=== PATIENT | female | born 1995 | race Caucasian/White ===

== ENCOUNTER 2020-02-13 09:39 | Outpatient (REF) | payer OTHER, SELFPAY ==
[2020-02-13 12:06] LABS: Alanine Aminotransferase 19 U/L (0-31); Anion Gap 14 (12-20); Aspartate Amino Transferase 18 U/L (5-31); Blood Urea Nitrogen 14 mg/dL (9-16); Calcium 8.7 mg/dL (8.4-10.2); Carbon Dioxide 25 mmol/L (22-29); Chloride 104 mmol/L (96-108); Cholesterol 212 mg/dL; Estimated Glomerular Filt Rate > 60; Glucose Fasting 88 mg/dL (60-99); HDL Cholesterol 78 mg/dL; LDL Cholesterol Calculated 113 mg/dl; Potassium 3.9 mmol/l (3.3-5.1); Sodium 139 mmol/L (135-145); Triglycerides 109 mg/dL
== END 2020-02-13 09:40 | disposition home or self-care (01) ==
LOC: HO.HMGCLDS 09:39
PROVIDERS: PCP Internal Medicine; Visit Provider Internal Medicine
DX: Z00.01 Encounter for general adult medical examination with abnormal findings (principal)
CPT/HCPCS: 80048; 80061; 84450; 84460

== ENCOUNTER 2021-08-19 08:21 | Outpatient (REF) | payer OTHER, SELFPAY ==
[2021-08-19 11:10] LABS: MANUAL DIFF FLAG NO
[2021-08-19 11:24] LABS: Basophils Percent Auto 0.6 % (0-2); Eosinophils Absolute Auto 0.2 X10*3/uL (0.0-0.4); Eosinophils Percent Auto 2.7 % (0-4); Hematocrit 38.9 % (37.0-47.0); Hemoglobin 12.6 g/dl (12.0-16.0); Imm Gran Abs Auto 0.02 X10*3/uL (0.00-0.03); Imm Gran Pct Auto 0.3 % (0.0-0.4); Lymphocytes Absolute Auto 2.8 X10*3/uL (1.2-4.9); Lymphocytes Percent Auto 39.2 % (20-40); Mean Corpuscular HGB Conc 32.4 g/dl (31.0-35.0); Mean Corpuscular Hemoglobin 29.1 pg (27.0-33.0); Mean Corpuscular Volume 89.8 fL (80.0-98.0); Mean Platelet Volume 10.3 fL (9.4-12.3); Monocytes Absolute Auto 0.4 X10*3/uL (0.1-1.2); Monocytes Percent Auto 5.6 % (2-11); Neutrophils Absolute Auto 3.6 x10*3/uL (2.0-8.3); Neutrophils Percent Auto 51.6 % (45-73); Platelet Count 381 X10*3/uL (160-400); Red Blood Count 4.33 X10*6/uL (4.20-5.50); Red Cell Distribution Width 12.2 % (11.0-16.0)
[2021-08-19 11:59] LABS: Alanine Aminotransferase 18 U/L (0-31); Anion Gap 13 (12-20); Aspartate Amino Transferase 18 U/L (5-31); Blood Urea Nitrogen 13 mg/dL (9-16); Calcium 9.7 mg/dL (8.4-10.2); Carbon Dioxide 24 mmol/L (22-29); Chloride 107 mmol/L (96-108); Cholesterol 221 mg/dL; Estimated Glomerular Filt Rate > 60; Glucose Fasting 95 mg/dL (60-99); HDL Cholesterol 76 mg/dL; LDL Cholesterol Calculated 126 mg/dl; Potassium 4.6 mmol/L (3.3-5.1); Sodium 139 mmol/L (135-145); Triglycerides 96 mg/dL
[2021-08-19 12:00] LABS: Vitamin D 25-OH Total 28.6 ng/mL (>30)
[2021-08-19 12:48] LABS: TSH reflex Free T4 1.62 uIU/mL (0.32-4.0)
== END 2021-08-19 08:22 | disposition home or self-care (01) ==
LOC: HO.HMGCLDS 08:21
PROVIDERS: PCP Internal Medicine; Visit Provider Internal Medicine
DX: Z00.01 Encounter for general adult medical examination with abnormal findings (principal); F41.9 Anxiety disorder, unspecified; F32.A Depression, unspecified; J30.9 Allergic rhinitis, unspecified
CPT/HCPCS: 36415; 80048; 80061; 82306; 84443; 84450; 84460; 85025

== ENCOUNTER 2022-06-30 10:13 | Outpatient (REF) | payer OTHER, SELFPAY ==
[2022-06-30 12:48] LABS: MANUAL DIFF FLAG NO
[2022-06-30 12:51] LABS: Basophils Percent Auto 0.3 % (0-2); Eosinophils Absolute Auto 0.1 X10*3/uL (0.0-0.4); Eosinophils Percent Auto 1.1 % (0-4); Hematocrit 36.9 % (37.0-47.0); Hemoglobin 12.1 g/dl (12.0-16.0); Imm Gran Abs Auto 0.01 X10*3/uL (0.00-0.03); Imm Gran Pct Auto 0.2 % (0.0-0.4); Lymphocytes Absolute Auto 2.2 X10*3/uL (1.2-4.9); Lymphocytes Percent Auto 35.4 % (20-40); Mean Corpuscular HGB Conc 32.8 g/dl (31.0-35.0); Mean Corpuscular Hemoglobin 29.2 pg (27.0-33.0); Mean Corpuscular Volume 88.9 fL (80.0-98.0); Mean Platelet Volume 10.3 fL (9.4-12.3); Monocytes Absolute Auto 0.2 X10*3/uL (0.1-1.2); Monocytes Percent Auto 3.4 % (2-11); Neutrophils Absolute Auto 3.7 x10*3/uL (2.0-8.3); Neutrophils Percent Auto 59.6 % (45-73); Platelet Count 367 X10*3/uL (160-400); Red Blood Count 4.15 X10*6/uL (4.20-5.50); Red Cell Distribution Width 12.3 % (11.0-16.0); White Blood Count 6.2 X10*3/uL (4.8-10.8)
[2022-06-30 13:21] LABS: Alanine Aminotransferase 16 U/L (0-31); Anion Gap 11 (12-20); Aspartate Amino Transferase 16 U/L (5-31); Blood Urea Nitrogen 11 mg/dL (9-16); Calcium 8.7 mg/dL (8.4-10.2); Carbon Dioxide 25 mmol/L (22-29); Chloride 107 mmol/L (96-108); Cholesterol 217 mg/dL; Estimated Glomerular Filt Rate > 60; Glucose Fasting 88 mg/dL (60-99); HDL Cholesterol 77 mg/dL; LDL Cholesterol Calculated 119 mg/dl; Sodium 139 mmol/L (135-145); Triglycerides 106 mg/dL
[2022-06-30 13:27] LABS: Vitamin D 25-OH Total 33.7 ng/mL (>30)
== END 2022-06-30 10:14 | disposition home or self-care (01) ==
LOC: HO.HMGCLDS 10:13
PROVIDERS: PCP Internal Medicine; Visit Provider Internal Medicine
DX: Z00.01 Encounter for general adult medical examination with abnormal findings (principal); F32.A Depression, unspecified; F41.9 Anxiety disorder, unspecified; J30.89 Other allergic rhinitis; J32.0 Chronic maxillary sinusitis; L70.0 Acne vulgaris
CPT/HCPCS: 36415; 80048; 80061; 82306; 84450; 84460; 85025

== ENCOUNTER 2023-05-25 13:29 | Outpatient (AMB) | payer OTHER, SELFPAY ==
--- NOTE | 2023-05-25 13:35 | MHC.PC.OV ---
Vital Signs 05/25/23 13:37 Height 5 ft 8 in Weight 215 lb BMI 32.7 BP 100/72 Blood Pressure Location Lt brachial Position Sitting Pulse 60 Pulse Source Pulse Oximeter Pulse Oximetry (%) 98 Oxygen Delivery Method Room Air Intake Visit Reasons: PE Intake Note: Pt is here today for her PE: Last papsmear 04/20/23 [facility] Allergies levofloxacin [Levaquin] Allergy (Unknown, Verified 05/25/23 13:47) tendonopathy SEASONAL ALLERGIES Allergy (Unknown, Uncoded 05/25/23 13:47) HAYFEVER/ASTHMA Medication List - Last Reconciled 05/25/23 by Jenifer Montemayor MD benzoyl peroxide 5% (Epsolay) appl topical clascoterone 1% (Winlevi) appl topical hydroxyzine HCl 10 mg PO BID levocetirizine (Xyzal) 5 mg PO QPM PRN tretinoin 0.1% 1 appl topical BEDTIME Tobacco use date assessed: 05/25/23 Dental Screening Dental Screen Date: 05/25/23 Did you have a dental visit in the last 12 months?: Yes Did you have a dental problem in the last 6 months where you did not have access to dental care?: No Was dental information given to patient?: Patient has dentist HPI PE HPI Details 27-year-old lady here today for physical exam. She has acne cystica, currently being seen by dermatology. Has anxiety and depression followed by Vera Salgado. She goes to [facility] for her cervical cancer screening, last Pap was done last month by Jackie Boyer. Patient states that she had to stop her control 2 weeks ago as her OBGYN is doing workup regarding her secondary amenorrhea. Patient states that she stopped having her period , does not even spot during her placebo pills for control kit, since she had COVID in September of 2021. She is up-to-date with her COVID booster, flu shot and Tdap [facility] Medical History (Updated 05/25/23 @ 14:26 by Jenifer Montemayor MD) History of COVID-19 Environmental and seasonal allergies Acne cystica H/O corrected cleft lip and palate History of cleft palate Anxiety and depression Allergic rhinitis Surgical History H/O wisdom tooth extraction History of surgical removal of ganglion cyst Family History Father Mental health disorder Maternal Grandfather Mental health disorder Maternal Grandmother Mental health disorder Breast cancer, Onset Age: 59 Paternal Grandfather Mental health disorder Paternal Grandmother Mental health disorder Sister Mental health disorder Sister Mental health disorder Sister Mental health disorder Brother Mental health disorder Brother Mental health disorder Maternal Aunt Breast cancer, Onset Age: 29 Social History Housing: Apartment Patient Tobacco Use Status: Never used Tobacco e-Cigarette/Vaping Use: Never Used service: No Current occupational status: employed Cognitive needs: No Hearing needs: No Vision needs: No Female Reproductive History Menstrual Other: Currently followed samra Benito Questionnaire PHQ-9 Over the last 2 weeks, how often have you been bothered by any of the following problems? 1. Little interest or pleasure in doing things: more than half the days 2. Feeling down, depressed, or hopeless: more than half the days 3. Trouble falling or staying asleep, or sleeping too much: several days 4. Feeling tired or having little energy: several days 5. Poor appetite or overeating: not at all 6. Feeling bad about yourself - or that you are a failure or have let yourself or your family down: several days 7. Trouble concentrating on things, such as reading the newspaper or watching television: several days 8. Moving or speaking so slowly that other people could have noticed. Or the opposite - being so fidgety or restless that you have been moving around a lot more than usual: not at all 9. Thoughts that you would be better off or of hurting yourself in some way: not at all Total score: 8 Depression Screening Interpretation: Positive Depression Screening Follow-up: Existing condition, In treatment and Community Mental Health Worker F/U (seegaicomo Salgado) Depression Screening Done: Yes 36908 - PHQ-9 Billing: Yes Source: Developed by Drs. Adolph Merritt, Jania Christiansen, Abel Hernández and colleagues, with an educational trinidad from [employer]. Thrive Questionnaire Date Thrive assessed: 05/25/23 I am a: Patient What is your living situation today?: I have a place to live, but I am worried about losing it in the future Within the past 12 months, did the food you bought not last and you didn't have the money to get more?: Never true Within the past 12 months, did you worry whether your food would run out before you got money to buy more?: Never true Do you have trouble paying for medicines?: Yes Do you have trouble getting transportation to medical appointments?: No Do you have trouble paying your heating and electricity bill?: No Do you have trouble taking care of your child, family member or friend?: No Do you have trouble with day-to-day activities such as bathing, preparing meals, shopping, managing finances, etc.?: Yes Are you currently unemployed and looking for a job?: No Are you interested in more education?: No Please select the resources that you would like help with: Paying for medicine and Daily support THRIVE Score: 1 AUDIT C Alcohol Use Questionnaire (AUDIT-C) 1. How often do you have a drink containing alcohol?: Never Total Score: 0 NATI-7 AMB Questionnaire NATI-7 Date NATI - 7 assessed: 05/25/23 Feeling nervous, anxious, or on edge: 2 = More than half the days Not being able to stop or control worryin = Several days Worrying too much about different things: 1 = Several days Trouble relaxin = Several days Being so restless that it is hard to sit still: 0 = Not at all Becoming easily annoyed or irritable: 1 = Several days Feeling afraid as if something awful might happen: 1 = Several days Total NATI-7 score (0-4 normal; 5-9 mild; 10-14 moderate; 15-21 severe): 7 Source: Developed by Drs. Adolph Merritt, Jania Christiansen, Abel Hernández and colleagues, with an educational trinidad from [employer]. NATI-7 Assessment Billing NATI-7 Assessment Tool: NATI-7 Assessment 07956 (Followed by psychiatry) Review of Systems Const Denies weakness Eyes Reports no additional complaints ENT Reports Normal hearing present Card Reports no additional complaints Resp Reports no additional complaints and Denies wheezing GI Denies abdominal pain, Denies change in bowel habits and Denies heartburn Denies urinary frequency, Denies dysuria, Denies urinary urgency and Denies vaginal discharge Musc Reports no additional complaints Skin/Breast Reports as per HPI (Followed by Dr. Givens) Neuro Reports Normal hearing present, Denies Sensory deficit (Neuro) and Denies weakness Psych Details: samra Salgado Reports as per HPI Endo Denies polydipsia and Denies polyuria Morgan/Lymph Denies easy bruising Aller/Immun Denies seasonal rhinorrhea and Denies wheezing Physical exam (Primary Care) Vital Signs: Last Vital Signs Pulse 60 05/25/23 13:37 BP 100/72 05/25/23 13:37 Pulse Ox 98 05/25/23 13:37 Oxygen Delivery Method Room Air 05/25/23 13:37 BMI result Body Mass Index 32.7 Tobacco/Smoking Status: Tobacco use Status Tobacco use date assessed 05/25/23 05/25/23 13:43 Patient Tobacco Use Status Never used Tobacco 05/25/23 13:43 e-Cigarette/Vaping Use Never Used 05/25/23 13:43 Depression Screening Interpretation: Positive Depression Screening Follow-up: Existing condition, In treatment and Community Mental Health Worker F/U (samra Salgado) Thrive Assessment: Date of Thrive Assessment Date Thrive assessed 04/28/22 05/25/23 13:43 Const General: no acute distress and alert Orientation/consciousness: patient oriented x3 Limitations: no limitations HENMT Head: Yes normocephalic Ears: hearing grossly normal bilaterally, external ears normal, TM's normal bilaterally and EAC's normal Mouth: Normal oral and palatal mucosa present, tongue normal, oropharynx normal and moist mucous membranes Eyes Conjunctivae: conjunctivae normal Sclerae: sclerae normal Pupils: Equal, round and reactive pupils present EOM: EOMs intact bilaterally Neck Neck: Yes full ROM and Yes no lymphadenopathy Thyroid: Thyroid normal Carotids: normal carotid upstroke Chest Chest palpation & inspection: normal inspection of the chest Breast/axilla palpation: normal palpation of the breasts Resp Effort & Inspection: normal respiratory effort and able to speak in complete sentences Auscultation: clear to auscultation bilaterally Cardio Jugular venous distension: no JVD Rate: regular rate Rhythm: regular rhythm Heart sounds: S1 normal heart sound present and S2 normal heart sound present GI Inspection: Yes normal to inspection Palpation (GI): Soft to palpation Auscultation: normal bowel sounds General: Yes no CVA tenderness Back/Spine/Pelvis Back: no CVA tenderness Skin Other: Acne scars on cheeks Neuro General: patient oriented x3, gait normal, moves all extremities, no focal motor deficits and CN's II-XI intact bilaterally Cranial nerves: Yes Equal, round and reactive pupils present and Yes Normal hearing present Cognition (Neuro): normal cognition Gait exam (Neuro): Normal gait present Motor exam (neuro): 5/5 motor strength present throughout Sensory Exam: No Sensory deficit (Neuro) Extrem General: Yes full ROM, Yes no pedal edema and Yes normal gait Psych Appearance: grossly normal and well kempt Mental Status: mental status grossly normal Speech and movement: Normal speech and movement present Affect: Sad affect present Attitude: cooperative Thought process: Normal thought process present Assessment and Plan Assessment & Plan (1) Annual visit for general adult medical examination with abnormal findings: Code(s): Z00.01 - Encounter for general adult medical examination with abnormal findings Plan: Will check appropriate labs. Recommended dental visit every 6 months and regular eye exams, at least every 2 years. She is up-to-date with all her vaccinations. Goes to [facility] for her routine Pap and pelvic exam, last Pap done a month ago with normal findings. (2) Anxiety and depression: Code(s): F41.9 - Anxiety disorder, unspecified; F32.A - Depression, unspecified (3) Acne cystica: Comment: Sees Dr. Givens Code(s): L70.0 - Acne vulgaris (4) Allergic rhinitis: Code(s): J30.9 - Allergic rhinitis, unspecified Plan: Takes Xyzal as needed which has been helping. Orders: Orders TSH reflex Free T4 Today F32.A - Depression, unspecified, F41.9 - Anxiety disorder, unspecified, L70.0 - Acne vulgaris, Z00.01 - Encounter for general adult medical examination with abnormal findings, Z13.1 - Encounter for screening for diabetes mellitus Basic Metabolic Panel Fasting Today F32.A - Depression, unspecified, F41.9 - Anxiety disorder, unspecified, L70.0 - Acne vulgaris, Z00.01 - Encounter for general adult medical examination with abnormal findings, Z13.1 - Encounter for screening for diabetes mellitus Alanine Aminotransferase Today F32.A - Depression, unspecified, F41.9 - Anxiety disorder, unspecified, L70.0 - Acne vulgaris, Z00.01 - Encounter for general adult medical examination with abnormal findings, Z13.1 - Encounter for screening for diabetes mellitus Vitamin D 25-OH Total Today F32.A - Depression, unspecified, F41.9 - Anxiety disorder, unspecified, L70.0 - Acne vulgaris, Z00.01 - Encounter for general adult medical examination with abnormal findings, Z13.1 - Encounter for screening for diabetes mellitus Complete Blood Count Auto Diff Today F32.A - Depression, unspecified, F41.9 - Anxiety disorder, unspecified, L70.0 - Acne vulgaris, Z00.01 - Encounter for general adult medical examination with abnormal findings, Z13.1 - Encounter for screening for diabetes mellitus Lipid Panel Today F32.A - Depression, unspecified, F41.9 - Anxiety disorder, unspecified, L70.0 - Acne vulgaris, Z00.01 - Encounter for general adult medical examination with abnormal findings, Z13.1 - Encounter for screening for diabetes mellitus Aspartate Amino Transferase Today F32.A - Depression, unspecified, F41.9 - Anxiety disorder, unspecified, L70.0 - Acne vulgaris, Z00.01 - Encounter for general adult medical examination with abnormal findings, Z13.1 - Encounter for screening for diabetes mellitus Coding Level of Care Code Est Pt Prev Care [id number]([id number]) Diagnoses Annual visit for general adult medical examination with abnormal findings Z00.01 Anxiety and depression F41.9; F32.A Acne cystica L70.0 Allergic rhinitis J30.9 Additional Codes NATI-7 Assessment Billing - NATI-7 Assessment Tool: NATI-7 Assessment 16864 ([id number])
[2023-05-25 13:37] VITALS: BP 100/72; PULSE 60; O2SAT 98; BMI 32.7
== END 2023-05-25 14:09 | disposition home or self-care (01) ==
PROVIDERS: Visit Provider Internal Medicine
DX: Z00.00 Encounter for general adult medical examination without abnormal findings (principal); F41.9 Anxiety disorder, unspecified; F32.A Depression, unspecified; L70.0 Acne vulgaris; J30.9 Allergic rhinitis, unspecified
CPT/HCPCS: 99395

== ENCOUNTER 2023-06-07 09:37 | Outpatient (REF) | payer OTHER, SELFPAY ==
[2023-06-07 11:23] LABS: MANUAL DIFF FLAG NO
[2023-06-07 11:35] LABS: Basophils Percent Auto 0.5 % (0-2); Eosinophils Absolute Auto 0.1 X10*3/uL (0.0-0.4); Eosinophils Percent Auto 1.6 % (0-4); Hematocrit 40.5 % (37.0-47.0); Hemoglobin 13.2 g/dl (12.0-16.0); Imm Gran Abs Auto 0.01 X10*3/uL (0.00-0.03); Imm Gran Pct Auto 0.2 % (0.0-0.4); Lymphocytes Absolute Auto 2.1 X10*3/uL (1.2-4.9); Lymphocytes Percent Auto 33.4 % (20-40); Mean Corpuscular HGB Conc 32.6 g/dl (31.0-35.0); Mean Corpuscular Hemoglobin 29.3 pg (27.0-33.0); Mean Corpuscular Volume 89.8 fL (80.0-98.0); Mean Platelet Volume 10.4 fL (9.4-12.3); Monocytes Absolute Auto 0.3 X10*3/uL (0.1-1.2); Monocytes Percent Auto 4.5 % (2-11); Neutrophils Absolute Auto 3.7 x10*3/uL (2.0-8.3); Neutrophils Percent Auto 59.8 % (45-73); Platelet Count 391 X10*3/uL (160-400); Red Blood Count 4.51 X10*6/uL (4.20-5.50); Red Cell Distribution Width 12.6 % (11.0-16.0); White Blood Count 6.2 X10*3/uL (4.8-10.8)
[2023-06-07 12:20] LABS: Alanine Aminotransferase 46 U/L (0-31); Anion Gap 14 (12-20); Aspartate Amino Transferase 29 U/L (5-31); Blood Urea Nitrogen 14 mg/dL (9-16); Calcium 9.2 mg/dL (8.4-10.2); Carbon Dioxide 26 mmol/L (22-29); Chloride 105 mmol/L (96-108); Cholesterol 222 mg/dL (<200); Estimated Glomerular Filt Rate > 60; Glucose Fasting 85 mg/dL (60-99); HDL Cholesterol 64 mg/dL (>40); LDL Cholesterol Calculated 137 mg/dL (<100); Potassium 3.6 mmol/L (3.3-5.1); Sodium 141 mmol/L (135-145); Triglycerides 105 mg/dL (<150)
[2023-06-07 12:36] LABS: TSH reflex Free T4 1.09 uIU/mL (0.32-4.0); Vitamin D 25-OH Total 33.6 ng/mL (>30)
== END 2023-06-07 09:38 | disposition home or self-care (01) ==
LOC: HO.HMGCLDS 09:37
PROVIDERS: PCP Internal Medicine; Visit Provider Internal Medicine
DX: Z00.01 Encounter for general adult medical examination with abnormal findings (principal); F41.9 Anxiety disorder, unspecified; F32.A Depression, unspecified; L70.0 Acne vulgaris; Z13.1 Encounter for screening for diabetes mellitus
CPT/HCPCS: 36415; 80048; 80061; 82306; 84443; 84450; 84460; 85025

== ENCOUNTER 2024-07-31 16:05 | Outpatient (AMB) | payer OTHER, SELFPAY ==
--- NOTE | 2024-07-31 16:12 | A.OFFPC_ITS ---
Vital Signs 07/31/24 16:14 Height 5 ft 8 in Weight 219 lb BMI 33.3 BP 100/66 Blood Pressure Location Rt brachial Position Sitting Respiration 16 Pulse 92 Pulse Source Pulse Oximeter Temp 98.0 F Temp Source Oral Pulse Oximetry (%) 99 Oxygen Delivery Method Room Air Intake Visit Reasons: Annual YW-Cvptndxkgt-ig w/Cherrie/PCP update Is last menstrual period known: Yes Last menstrual period: 07/25/24 Allergies levofloxacin [Levaquin] Allergy (Unknown, Verified 07/31/24 16:19) tendonopathy SEASONAL ALLERGIES Allergy (Unknown, Uncoded 07/31/24 16:19) HAYFEVER/ASTHMA Medication List - Last Reconciled 07/31/24 by Jenifer Montemayor MD Bacillus coagulans (Probiotic (B. coagulans)) cells PO benzoyl peroxide 5% (Epsolay) appl topical clonazepam mg PO doxycycline monohydrate 1 cap PO DAILY escitalopram oxalate 10 mg PO DAILY hydroxyzine HCl 10 mg PO BID levocetirizine (Xyzal) 5 mg PO QPM PRN tretinoin 0.1% 1 appl topical BEDTIME Tobacco use date assessed: 07/31/24 Dental Screening Dental Screen Date: 07/31/24 Did you have a dental visit in the last 12 months?: Yes Did you have a dental problem in the last 6 months where you did not have access to dental care?: No Was dental information given to patient?: Patient has dentist HPI Annual CY-Ebolnzzbbe-rw w/Cherrie/PCP update HPI Details 28-year-old lady with history anxiety a nd depression, followed by a psychiatrist and stable on current treatment, here today for her physical exam. He is up-to-date with her cervical cancer screening, goes to [facility] with last Pap smear done in 2020 showed negative findings. She has seasonal allergic rhinitis currently taking levocetirizine as needed. Currently followed by dermatology for her cystic acne, on low-dose doxycycline daily, tretinoin and using benzoyl peroxide topical. Complaining however of some vaginal itching discharge present now for the last several days, with no accompanying dysuria no urgency back pain. She has been complaining frequent upper back and posterior neck pain, which she attributes to her much breasts. She has been taking teyb-voy-hwlaytl NSAIDs alternating with Tylenol, has tried apply Salonpas patch to affected area and exercise relieve her back pain all of which has not helped. She has a recurrent rash under both breast , worse during the summer months. Patient would like a referral for breast reduction surgery [facility] Medical History (Updated 08/02/24 @ 23:05 by Jenifer Montemayor MD) Erythema intertrigo Dorsalgia of cervical region History of COVID-19 Environmental and seasonal allergies Acne cystica H/O corrected cleft lip and palate History of cleft palate Anxiety and depression Allergic rhinitis Surgical History H/O wisdom tooth extraction History of surgical removal of ganglion cyst Family History Father Mental health disorder Maternal Grandfather Mental health disorder Maternal Grandmother Mental health disorder Breast cancer, Onset Age: 59 Paternal Grandfather Mental health disorder Paternal Grandmother Mental health disorder Sister Mental health disorder Sister Mental health disorder Sister Mental health disorder Brother Mental health disorder Brother Mental health disorder Maternal Aunt Breast cancer, Onset Age: 29 Social History Housing: Apartment Patient Tobacco Use Status: Never used Tobacco e-Cigarette/Vaping Use: Never Used service: No Current occupational status: employed Cognitive needs: No Hearing needs: No Vision needs: No Female Reproductive History Menstrual Date of last menstrual period: 07/25/24 Questionnaire PHQ-9 Over the last 2 weeks, how often have you been bothered by any of the following problems? 1. Little interest or pleasure in doing things: more than half the days 2. Feeling down, depressed, or hopeless: several days 3. Trouble falling or staying asleep, or sleeping too much: several days 4. Feeling tired or having little energy: nearly every day 5. Poor appetite or overeating: not at all 6. Feeling bad about yourself - or that you are a failure or have let yourself or your family down: several days 7. Trouble concentrating on things, such as reading the newspaper or watching television: nearly every day 8. Moving or speaking so slowly that other people could have noticed. Or the opposite - being so fidgety or restless that you have been moving around a lot more than usual: not at all 9. Thoughts that you would be better off or of hurting yourself in some way: not at all Total score: 11 Depression Screening Interpretation: Positive (Currently followed by Vera Salgado NP) Depression Screening Follow-up: Existing condition, In treatment and Community Mental Health Worker F/U Depression Screening Done: Yes 86884 - PHQ-9 Billing: Yes Source: Developed by Drs. Adolph Merritt, Jania Christiansen, Abel Hernández and colleagues, with an educational trinidad from [employer]. Thrive Questionnaire Date Thrive assessed: 07/31/24 I am a: Patient What is your living situation today?: I have a steady place to live Within the past 12 months, did the food you bought not last and you didn't have the money to get more?: Never true Within the past 12 months, did you worry whether your food would run out before you got money to buy more?: Never true Do you have trouble paying for medicines?: I choose not to answer this question Do you have trouble getting transportation to medical appointments?: No Do you have trouble paying your heating and electricity bill?: I choose not to answer this question Do you have trouble taking care of your child, family member or friend?: No Do you have trouble with day-to-day activities such as bathing, preparing meals, shopping, managing finances, etc.?: No Are you currently unemployed and looking for a job?: No Are you interested in more education?: No Please select the resources that you would like help with: None Currently or been in a relationship where the following occur: No concerns reported THRIVE Score: 0 AUDIT C Alcohol Use Questionnaire (AUDIT-C) 1. How often do you have a drink containing alcohol?: Monthly or less 2. How many drinks containing alcohol do you have on a typical day when you are drinking?: 1 or 2 3. How often do you have six or more drinks on one occasion?: Never Total Score: 1 NATI-7 AMB Questionnaire NATI-7 Date NATI - 7 assessed: 07/31/24 Feeling nervous, anxious, or on edge: 2 = More than half the days Not being able to stop or control worryin = More than half the days Worrying too much about different things: 2 = More than half the days Trouble relaxin = Nearly every day Being so restless that it is hard to sit still: 2 = More than half the days Becoming easily annoyed or irritable: 3 = Nearly every day Feeling afraid as if something awful might happen: 1 = Several days Total NATI-7 score (0-4 normal; 5-9 mild; 10-14 moderate; 15-21 severe): 15 Source: Developed by Drs. Adolph Merritt, Jania Christiansen, Abel Hernández and colleagues, with an educational trinidad from [employer]. NATI-7 Assessment Billing NATI-7 Assessment Tool: NATI-7 Assessment 22816 Review of Systems Const Reports as per HPI, Denies weakness and Reports weight gain Eyes Reports no additional complaints ENT Reports no additional complaints and Reports Normal hearing present Card Reports no additional complaints Resp Reports no additional complaints and Denies wheezing GI Denies abdominal pain, Denies change in bowel habits and Denies heartburn Reports as per HPI Musc Reports no additional complaints Skin/Breast Reports as per HPI (Followed by Dr. Givens) Neuro Reports Normal hearing present, Denies Sensory deficit (Neuro) and Denies weakness Psych Details: sees Vera Salgado Reports as per HPI Endo Denies polydipsia and Denies polyuria Morgan/Lymph Denies easy bruising Aller/Immun Denies seasonal rhinorrhea and Denies wheezing Physical exam (Primary Care) Vital Signs: Last Vital Signs Temp 98.0 F 07/31/24 16:14 Pulse 92 07/31/24 16:14 Resp 16 07/31/24 16:14 BP 100/66 07/31/24 16:14 Pulse Ox 99 07/31/24 16:14 Oxygen Delivery Method Room Air 07/31/24 16:14 BMI result Body Mass Index 33.3 Tobacco/Smoking Status: Tobacco use Status Tobacco use date assessed 07/31/24 07/31/24 16:18 Patient Tobacco Use Status Never used Tobacco 07/31/24 16:18 e-Cigarette/Vaping Use Never Used 07/31/24 16:18 PHQ-9: PHQ-9 Score PHQ-9: Total score 11 08/01/24 10:36 Depression Screening Interpretation: Positive (Currently followed by Vera Salgado NP) Depression Screening Follow-up: Existing condition, In treatment and Community Mental Health Worker F/U Thrive Assessment: Date of Thrive Assessment Date Thrive assessed 07/31/24 07/31/24 16:18 Currently or been in a relationship where the following occur: No concerns reported Const General: no acute distress and alert Orientation/consciousness: patient oriented x3 HENMT Head: Yes normocephalic Ears: hearing grossly normal bilaterally, external ears normal, TM's normal bilaterally and EAC's normal Mouth: Normal oral and palatal mucosa present, tongue normal, oropharynx normal and moist mucous membranes Eyes Conjunctivae: conjunctivae normal Sclerae: sclerae normal Pupils: Equal, round and reactive pupils present EOM: EOMs intact bilaterally Neck Neck: Yes full ROM and Yes no lymphadenopathy Thyroid: Thyroid normal Carotids: normal carotid upstroke Chest Chest palpation & inspection: normal inspection of the chest Breast/axilla palpation: normal palpation of the breasts Resp Effort & Inspection: normal respiratory effort and able to speak in complete sentences Auscultation: clear to auscultation bilaterally Cardio Jugular venous distension: no JVD Rate: regular rate Rhythm: regular rhythm Heart sounds: S1 normal heart sound present and S2 normal heart sound present GI Inspection: Yes normal to inspection Palpation (GI): Soft to palpation Auscultation: normal bowel sounds General: Yes no CVA tenderness Back/Spine/Pelvis Back: no CVA tenderness Skin Other: Acne scars on cheeks Neuro General: patient oriented x3, gait normal, moves all extremities, no focal motor deficits and CN's II-XI intact bilaterally Cranial nerves: Yes Equal, round and reactive pupils present and Yes Normal hearing present Cognition (Neuro): normal cognition Gait exam (Neuro): Normal gait present Motor exam (neuro): 5/5 motor strength present throughout Sensory Exam: No Sensory deficit (Neuro) Extrem General: Yes full ROM, Yes no pedal edema and Yes normal gait Psych Appearance: grossly normal and well kempt Mental Status: mental status grossly normal Speech and movement: Normal speech and movement present Affect: Sad affect present Attitude: cooperative Thought process: Normal thought process present Coding Level of Care Code Est Pt Prev Care 18-39y(28269) Diagnoses Annual visit for general adult medical examination with abnormal findings Z00.01 Allergic rhinitis, unspecified seasonality, unspecified trigger J30.9 Allergic rhinitis trigger: unspecified Allergic rhinitis seasonality: unspecified Dorsalgia of cervical region M54.2 Anxiety and depression F41.9; F32.A Acne cystica L70.0 Encounter for counseling regarding advance directives Z71.89 Acute vaginitis N76.0 Chronicity: acute Additional Codes NATI-7 Assessment Billing - NATI-7 Assessment Tool: NATI-7 Assessment 39680 ([id number]) PHQ-9 - 73766 - PHQ-9 Billing: Yes ([id number]) Assessment & Plan Assessment & Plan (1) Annual visit for general adult medical examination with abnormal findings: Code(s): Z00.01 - Encounter for general adult medical examination with abnormal findings Plan: Will check appropriate labs. Continue regular dental visit every 6 months and regular eye exams, at least every 2 years. Take adequate calcium in diet and vitamin-D 3 at 2000 IU per cap once a day, in addition to weight-bearing exercises to help maintain good muscle tone and weight control. Up-to-date with her cervical cancer screening, sees [facility]. Instructed to do self- breast exam, and recommended to get yearly mammogram, starting at age 40. Up-to-date with all her vaccines (2) Allergic rhinitis: Code(s): J30.9 - Allergic rhinitis, unspecified Category: Medical Qualifiers: Allergic rhinitis trigger: unspecified Allergic rhinitis seasonality: unspecified Qualified Code(s): J30.9 - Allergic rhinitis, unspecified Plan: Continue levocetirizine (3) Dorsalgia of cervical region: Code(s): M54.2 - Cervicalgia Category: Medical Plan: Referred to Dr. Shearer to see if candidate for breast reduction surgery (4) Anxiety and depression: Comment: followed by Vera Salgado NP Code(s): F41.9 - Anxiety disorder, unspecified; F32.A - Depression, unspecified Category: Medical Plan: Currently taking clonazepam as needed and escitalopram oxalate 10 mg daily and takes hydroxyzine HCl 10 mg twice a day as needed for anxiety. Currently followed by psychiatry (5) Acne cystica: Comment: Sees Dr. Givens Code(s): L70.0 - Acne vulgaris Category: Medical Plan: Sees Dr. Givens, currently on doxycycline monohydrate 1 capsule daily added triamcinolone 0.1% applied at bedtime using benzoyl peroxide wash (6) Encounter for counseling regarding advance directives: Code(s): Z71.89 - Other specified counseling Plan: Initiated the conversation about Advanced Directives. Advanced Directives help patients prepare for current and future decisions about their medical treatment and place of care. Discussed with patient that it is a process where a patients current condition and prognosis are reviewed, their wishes for information regarding their illness are elicited, and likely medical dilemmas are presented and options discussed. Healthcare proxy form completed today. form can be amended as needed, reviewed yearly and make changes as needed (7) Vaginitis: Code(s): N76.0 - Acute vaginitis Qualifiers: Chronicity: acute Qualified Code(s): N76.0 - Acute vaginitis Plan: Likely due to current low-dose doxycycline use, empirically treated with fluconazole 150 mg per tablet to take 1 tablet once , and may repeat dose after 3 days if symptoms not resolved. Orders: Orders Vitamin D 25-OH Total 07/31/24 F32.A - Depression, unspecified, F41.9 - Anxiety disorder, unspecified, J30.89 - Other allergic rhinitis, J30.9 - Allergic rhinitis, unspecified, L70.0 - Acne vulgaris, Z00.01 - Encounter for general adult medical examination with abnormal findings, Z71.89 - Other specified counseling Comprehensive [place]. Panel Fast 07/31/24 F32.A - Depression, unspecified, F41.9 - Anxiety disorder, unspecified, J30.89 - Other allergic rhinitis, J30.9 - Allergic rhinitis, unspecified, L70.0 - Acne vulgaris, Z00.01 - Encounter for general adult medical examination with abnormal findings, Z71.89 - Other specified counseling Lipid Panel 07/31/24 F32.A - Depression, unspecified, F41.9 - Anxiety disorder, unspecified, J30.89 - Other allergic rhinitis, J30.9 - Allergic rhinitis, unspecified, L70.0 - Acne vulgaris, Z00.01 - Encounter for general adult medical examination with abnormal findings, Z71.89 - Other specified counseling Referrals Breast Surgery Referral L30.4 - Erythema intertrigo, M54.2 - Cervicalgia
[2024-07-31 16:14] VITALS: BP 100/66; PULSE 92; RESP 16; TEMP 36.7; O2SAT 99; BMI 33.3
== END 2024-07-31 16:44 | disposition home or self-care (01) ==
LOC: HO.HMCC 16:06
PROVIDERS: PCP Internal Medicine; Visit Provider Internal Medicine
DX: Z00.01 Encounter for general adult medical examination with abnormal findings (principal); J30.9 Allergic rhinitis, unspecified; M54.2 Cervicalgia; F41.9 Anxiety disorder, unspecified; F32.A Depression, unspecified; L70.0 Acne vulgaris; Z71.89 Other specified counseling; N76.0 Acute vaginitis

== ENCOUNTER → 2024-07-31 16:05 | Outpatient (BNVA) | payer OTHER, SELFPAY | PROVIDERS: PCP Internal Medicine; Visit Provider Internal Medicine | DX: Z00.01 Encounter for general adult medical examination with abnormal findings (principal); Z71.89 Other specified counseling; J30.9 Allergic rhinitis, unspecified; M54.2 Cervicalgia; F41.9 Anxiety disorder, unspecified; F32.A Depression, unspecified; L70.0 Acne vulgaris; N76.0 Acute vaginitis; Z79.899 Other long term (current) drug therapy | CPT/HCPCS: 96127; 99395 ==